=== PATIENT | male | born 1985 | race Two or more races ===

== ENCOUNTER 2019-12-18 19:12 | Emergency (ER) | payer OTHER ==
[~2019-12-18] VITALS: Ht 185.4 cm; Wt 88.5 kg
[2019-12-18 19:22] VITALS: BP 128/78
--- NOTE | 2019-12-18 19:42 | NUR ---
coivd swab collected. sent to lab
--- NOTE | 2019-12-18 20:31 | NUR ---
Patient discharged to in custody with [employer] in stable condition. Written and verbal after care instructions given. Patient verbalizes understanding of instruction.
--- NOTE | 2019-12-18 20:36 | NUR ---
Olga vogel in [facility] - 12/18/19 at 2037 by CIPRIANO UNABLE TO DEPART PATIENT DUE TO MEDITECH
== END 2019-12-18 20:37 ==
LOC: ER 19:16
DX: Z04.89 Encounter for examination and observation for other specified reasons (principal); B34.9 Viral infection, unspecified; R05 Cough; R50.9 Fever, unspecified; Z20.828 Contact with and (suspected) exposure to other viral communicable diseases; F41.9 Anxiety disorder, unspecified
CPT/HCPCS: 87426; 99283; C9803